=== PATIENT | female | born 1965 | race Caucasian/White ===

== ENCOUNTER 2019-12-17 06:18 | Day surgery (SDC) | payer OTHER ==
[~2019-12-17] VITALS: Ht 167.6 cm; Wt 84.4 kg
[~2019-12-17 06:18] MED LIST: GABA400 PO; PREMPRO PO; PROBIOTIC1 EAC1 PO; VITAMINS; ZESTORETIC 20-121 EA
[2019-12-17] MEDS ORDERED: METFORMIN ER G500 MG PO (07:14)
--- NOTE | 2019-12-17 07:26 | NUR ---
12/17/19 0726 BENI VIDAL HCG AND CHEMBG PERFORMED BY BENI ELIZALDE [facility].RDS
--- NOTE | 2019-12-17 09:09 | NUR ---
12/17/19 0909 Sherly Ulloa ASSUMED CARE OF PATIENT FROM FIDE MUNOZ. PATIENT C/O PAIN RATED AT 4/10, VSS. WILL MEDICATED PER ORDERS. DAUGHTER AT SIDE.
== END 2019-12-17 09:36 | disposition home or self-care (01) ==
LOC: ORSCSDS 06:18
PROVIDERS: Orthopaedic Surgery
PROC: 0SBC4ZZ Excision of Right Knee Joint, Percutaneous Endoscopic Approach (ICD-10-PCS; principal; 2019-12-17 07:30)
DX: S83.271A Complex tear of lateral meniscus, current injury, right knee, initial encounter (principal); S83.241A Other tear of medial meniscus, current injury, right knee, initial encounter; I10 Essential (primary) hypertension; E11.9 Type 2 diabetes mellitus without complications; Z79.899 Other long term (current) drug therapy
CPT/HCPCS: 82947; A9270-GY; J0690; J1100; J1885; J2250; J2370; J2405; J2704; J3010; J7040; J7120

== ENCOUNTER 2020-10-16 08:51 | Day surgery (SDC) | payer OTHER ==
[~2020-10-16] VITALS: Ht 167.6 cm; Wt 81.6 kg
[~2020-10-16 08:51] MED LIST changes: +METFORMIN ER G500 MG PO
--- NOTE | 2020-10-16 11:03 | NUR ---
10/16/20 1103 Manohar Lanier COMPLETE BY DR ARMAS IN OR. PT TOW.
== END 2020-10-16 11:50 | disposition home or self-care (01) ==
LOC: ORSCSDS 08:51
PROVIDERS: Orthopaedic Surgery
PROC: 01N50ZZ Release Median Nerve, Open Approach (ICD-10-PCS; principal; 2020-10-16 10:00)
DX: G56.02 Carpal tunnel syndrome, left upper limb (principal); E11.9 Type 2 diabetes mellitus without complications; I10 Essential (primary) hypertension; Z79.84 Long term (current) use of oral hypoglycemic drugs; Z79.899 Other long term (current) drug therapy
CPT/HCPCS: 82947; J0690; J1885; J2250; J2704; J3010; J7120

== ENCOUNTER 2020-12-11 13:26 | Day surgery (SDC) | payer OTHER ==
[~2020-12-11] VITALS: Ht 167.6 cm; Wt 82.2 kg
[2020-12-11] MEDS ORDERED: MELO7.5 PO (14:49)
--- NOTE | 2020-12-11 14:52 | NUR ---
12/11/20 1452 JAMES BARNES BLOCK IV STARTED IN [address]
--- NOTE | 2020-12-11 18:18 | NUR ---
12/11/201817 Yecenia Wie PT LEFT WITHOUT SIGNING DISCHARGE INSTRUCTIONS. RN CALLED PATIENT & WAS ABLE TO CONFIRMED DISCHARGE INSTRUCTIONS & PT GAVE VERBAL. PT CONFIRMED SHE PICKED UP HER RX FROM DR. SHEPARD'S OFFICE LAST WEEK, 12/08/20.
== END 2020-12-11 17:30 | disposition home or self-care (01) ==
LOC: ORSCSDS 13:26
PROVIDERS: Orthopaedic Surgery
PROC: 01N50ZZ Release Median Nerve, Open Approach (ICD-10-PCS; principal; 2020-12-11 16:00)
DX: G56.01 Carpal tunnel syndrome, right upper limb (principal); I10 Essential (primary) hypertension; E11.9 Type 2 diabetes mellitus without complications; Z79.84 Long term (current) use of oral hypoglycemic drugs; Z79.899 Other long term (current) drug therapy
CPT/HCPCS: 82947; J0690; J1885; J2250; J2704; J3010; J7120

== ENCOUNTER 2021-07-27 10:24 | Day surgery (SDC) | payer OTHER ==
[~2021-07-27] VITALS: Ht 167.6 cm; Wt 85.0 kg
[~2021-07-27 10:24] MED LIST changes: +MELO7.5 PO
--- NOTE | 2021-07-27 13:35 | NUR ---
07/27/21 9257 GERTRUDE WYNN PT STATES PAIN IS FEELING MORE TOLERABLE AT THIS TIME
== END 2021-07-27 14:30 | disposition home or self-care (01) ==
LOC: ORSCSDS 10:24
PROVIDERS: Orthopaedic Surgery
PROC: 0SBD4ZZ Excision of Left Knee Joint, Percutaneous Endoscopic Approach (ICD-10-PCS; principal; 2021-07-27 11:30)
DX: S83.242A Other tear of medial meniscus, current injury, left knee, initial encounter (principal); I10 Essential (primary) hypertension; E11.9 Type 2 diabetes mellitus without complications; Z79.84 Long term (current) use of oral hypoglycemic drugs; Z79.899 Other long term (current) drug therapy
CPT/HCPCS: 82947; A9270; J0171; J0690; J1100; J1885; J2250; J2370; J2405; J2704; J3010; J7120

== ENCOUNTER 2022-09-23 06:06 | Day surgery (SDC) | payer OTHER ==
[2022-09-23] VITALS (17 sets, daily range): BP systolic 91–128; BP diastolic 54–86
[~2022-09-23] VITALS: Ht 165.1 cm; Wt 86.4 kg
[~2022-09-23 06:06] MED LIST changes: +MAGNESIUM OXID500 MG PO; +MULVITA PO; +VITAMIN D310 MC4 PO; +Vitamin B Comple1 EA PO; +ZINC15 PO
[2022-09-23] MEDS ORDERED: ACET500 PO (06:28)
--- NOTE | 2022-09-23 11:17 | NUR ---
ARRIVAL TO UNIT VIA HOSPITAL BED. ASSESSMENT CHARTED. ALERT, ORIENTED, PLEASANT. SNACKS & WATER GIVEN.
--- NOTE | 2022-09-23 19:49 | NUR ---
SHIFT SUMMARY STRUGGLING w/ PAIN MANAGEMENT SLIGHTLY, BUT STILL WORKED w/ THERAPY. EATING, DRINKING, & VOIDING. R EYE HAD SOME SIGNIFICANT SWELLING & PAIN BUT INSTANTLY RELIEVED BY MEDICATED EYE DROPS. NO CHANGES IN VISION. IGINITION RISK ASSESSED; NO SOURCES IDENTIFIED.
[2022-09-24 02:27] VITALS: BP 132/87
[2022-09-24 05:55] LABS: BASOPHILS ABSOLUTE AUTO 0.06 K/mm3 (0.00-0.23); BASOPHILS PERCENT AUTO 1 % (0-2); EOSINOPHILS ABSOLUTE AUTO 0.21 K/mm3 (0.00-0.68); EOSINOPHILS PERCENT AUTO 2 % (0-6); Hemoglobin 11.9 g/dL (11.5-16.0); IMMATURE GRAN ABSOLUTE AUTO 0.02 K/mm3 (0.00-0.10); IMMATURE GRAN PERCENT AUTO 0 % (0-1); LYMPHOCYTES ABSOLUTE AUTO 2.01 K/mm3 (0.84-5.20); LYMPHOCYTES PERCENT AUTO 21 % (21-46); MONOCYTES PERCENT AUTO 7 % (4-13); Mean Corpuscular HGB 30.5 pg (26.0-34.0); Mean Corpuscular Volume 90 fL (80-100); Mean Platelet Volume 9.4 fL (9.1-12.4); NEUTROPHILS PERCENT AUTO 70 % (41-73); Platelet Count 301 K/mm3 (150-400); RDW Coefficient Variation 12.6 % (11.7-14.2); RDW Standard Deviation 41.1 fL (35.1-46.3)
[2022-09-24 06:18] LABS: Calcium, Blood 8.2 mg/dL (8.5-10.1); Creatinine, Blood 0.56 mg/dL (0.40-1.00); Potassium, Blood 3.9 mmol/L (3.5-5.5)
--- NOTE | 2022-09-24 06:42 | NUR ---
POD 1 S/P L PUNEET. PT VSS T/O NIGHT, DRESSING CDI. PT STRUGGLED W/PAIN MGMT, MEDICATED PER EMAR W/REP RELIEF. POLAR PACK IN PLACE, LLE ELEVATED FOR COMFORT. PULSES AND CAP REFILLWNL. PT YING PO, DENIED N/V, IS VOIDING URIEN W/O DIFFICULTY. PT UP OOB W/FWW+SBA, YING WELL. PLAN TO MOBILIZE W/PT AND DC HOME WHEN CLEARED. IGNITIONS RISKS ASSESSED, PT VERBALIZED UNDERSTANDING OF POLICY.
[2022-09-24 07:32] VITALS: BP 116/77
[2022-09-24] MEDS ORDERED: ASPI81CH PO (08:52)
[2022-09-24] MEDS ORDERED: SULTRIDS PO (08:52)
[2022-09-24] MEDS ORDERED: OXYC5 PO (08:53)
--- NOTE | 2022-09-24 09:23 | NUR ---
DISCHARGE PT HAS CLEARED THERAPY. PAIN CONTROLLED. EATING, DRINKING, & VOIDING WELL. POLAR PACK SENT w/ PT. ESCORTED OUT VIA W/C.
== END 2022-09-24 09:39 | disposition home or self-care (01) ==
LOC: ORSCMMR 06:06 → ORD 07:30 → SURS 11:00 → ORSCMMR 09-24 09:39
PROVIDERS: Orthopaedic Surgery
PROC: 0SRB0JA Replacement of Left Hip Joint with Synthetic Substitute, Uncemented, Open Approach (ICD-10-PCS; principal; 2022-09-23 07:30)
DX: M16.12 Unilateral primary osteoarthritis, left hip (principal); W01.0XXA Fall on same level from slipping, tripping and stumbling without subsequent striking against object, initial encounter; I10 Essential (primary) hypertension; Z87.891 Personal history of nicotine dependence; Z79.899 Other long term (current) drug therapy; Z79.84 Long term (current) use of oral hypoglycemic drugs
CPT/HCPCS: 36415; 72170; 80048; 82947; 83735; 85025; 97110; 97116; 97161; A9270; C1713; C1776; J0171; J0690; J0735; J1170; J1885; J2250; J2371; J2405; J2704; J2795; J7120